=== PATIENT | female | born 1945 | race Caucasian/White ===

== ENCOUNTER → 2020-12-25 | Outpatient (CLI) | payer OTHER ==
[~2020-12-25] MED LIST: COZAAR100 MG PO; DULCOLAX5 MG PO; NORVASC5 M1 PO; OMEPRAZOLE40 MG PO; SUPER THERAVIT1 EACH PO; TYLENOL EXTRA500 MG PO
== END ==
LOC: LAB 09:13
PROVIDERS: ATTEND Specialist
DX: Z01.812 Encounter for preprocedural laboratory examination (principal); Z20.822 Contact with and (suspected) exposure to COVID-19

== ENCOUNTER → 2020-12-30 | Outpatient (CLI) | payer OTHER ==
[~2020-12-30] VITALS: Ht 160 cm; Wt 77.1 kg
--- NOTE | 2020-12-31 13:16 | P ---
[facility] [place] [address] [address] PROCEDURE REPORT Name: BREANN JURADO Room #: REG Curtis Guzman#: [id number] Admission: 12/30/20 Attend Phys: Chi Robison Discharge: Date of : 43 Report #: [id number] THIS REPORT FOR: cc: Anuj Lopez MD, Jonathan MD McElhinney,Chi Wilson MD ~ DATE OF SERVICE: 12/30/2020 PROCEDURE PERFORMED: Colonoscopy with polypectomy and tattoo. HISTORY OF PRESENT ILLNESS: The patient is a 75-year-old female with a history of colon polyps, who underwent a Cologuard test that was positive recently. She does complain of constipation in general as well as low crampy abdominal pain. No family history of colon cancer. DESCRIPTION OF PROCEDURE: The risks and benefits of the procedure were explained to the patient, those risks including but not limited to bleeding, perforation and the risk of sedation. She understood these risks and gave informed consent. Sedation was given using propofol per anesthesia. Next, a digital rectal exam was initially performed, which was normal. Next, using a standard Olympus colonoscope, the scope was placed in the patient's anus and advanced under direct vision to the cecum. The overall prep was good. The cecum and ileocecal valve were normal in appearance. In the proximal ascending colon, a large 2.5 cm sessile polyp was noted. This was removed in a piecemeal fashion with a snare cautery as well as cold biopsy forceps, the edges were then tattooed. Otherwise, normal ascending colon, transverse and descending colon were normal. Multiple small diverticula noted in the sigmoid colon, otherwise normal. In the rectum, a single 4 mm sessile polyp was noted. This was removed with cold forceps. On retroflexion, small nonbleeding internal hemorrhoids were noted. The scope was then withdrawn and the procedure terminated. The patient tolerated the procedure well. IMPRESSION: 1. Large sessile polyp in the ascending colon. 2. Small rectal polyp. 3. Sigmoid diverticulosis. 4. Internal hemorrhoids. RECOMMENDATIONS: 1. Await biopsy results. 2. Positive Cologuard test, likely due to polyps as described above. 3. Would recommend repeat colonoscopy in 1 year due to the large sessile polyp in the ascending colon. 4. Advised the patient to try MiraLax on a daily basis. [address] [address] PROCEDURE REPORT Name: BREANN JURADO Room #: REG CLCurtis Guzman#: [id number] Admission: 12/30/20 Attend Phys: Chi Robison Discharge: Date of : 43 Report #: [id number] Thank you for allowing me to participate in her care. <ELECTRONICALLY SIGNED> By: Chi Hassan MD 12/31/20 1316 1051 1111 Chi Hassan MD /raúl
--- NOTE | 2020-12-31 13:17 | P ---
[facility] [place] [address] PROCEDURE REPORT Name: BREANN JURADO Room #: REG MIRYAM Guzman#: [id number] Admission: 12/30/20 Attend Phys: Chi Robison Discharge: Date of : 43 Report #: [id number] THIS REPORT FOR: cc: Anuj Lopez MD, Jonathan MD McElhinney,Chi Wilson MD ~ DATE OF SERVICE: 12/30/2020 PROCEDURE PERFORMED: Upper endoscopy with biopsies. HISTORY OF PRESENT ILLNESS: The patient is a 75-year-old female with a history of gastroesophageal reflux disease, currently taking Prilosec 40 mg on a daily basis, has a positive Cologuard test recently. She is scheduled for EGD and colonoscopy. She does complain of constipation and low intermittent abdominal pain. She denies any dysphagia or nausea or vomiting. The patient had a possible history of H. pylori, treated in the past. DESCRIPTION OF PROCEDURE: The risks and benefits of the procedure were explained to the patient, those risks including but not limited to bleeding, perforation and the risk of sedation. She understood these risks and gave informed consent. Sedation was given using propofol per anesthesia. Next, using a standard Olympus upper endoscope, the scope was placed in the patient's mouth and advanced under direct vision through the esophagus, stomach and into the second portion of the duodenum. The larynx was normal in appearance. The upper and mid esophagus was normal. In the distal esophagus, grade B erosive esophagitis was noted, possible short segment of العلي's was also noted. Biopsies were obtained. Upon entering the stomach, a small hiatal hernia was noted. Overall, the gastric mucosa was normal. Biopsies were obtained to rule out the possibility of H. pylori. The pylorus was normal and patent. The duodenal bulb, first and second portion were all normal. The scope was then withdrawn and the procedure terminated. The patient tolerated the procedure well. IMPRESSION: 1. Grade B erosive esophagitis despite being on daily PPI therapy. 2. 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 3. Small hiatal hernia. 4. Otherwise, normal upper endoscopy. RECOMMENDATIONS: 1. Await biopsy results. 2. Would recommend b.i.d. PPI therapy. 3. We will proceed with colonoscopy next today. [address] [address] PROCEDURE REPORT Name: BREANN JURADO DEVIN Room #: REG MIRYAM Guzman#: [id number] Admission: 12/30/20 Attend Phys: Chi Robison Discharge: Date of : 43 Report #: [id number] Thank you for allowing me to participate in her care. <ELECTRONICALLY SIGNED> By: Chi Hassan MD 12/31/20 1317 1005 1012 Chi Hassan MD /nt
--- NOTE | 2021-01-05 18:06 | PATH ---
[facility] [place] [place] [address] PATHOLOGY RPT PROCEDURE Name: BREANN JURADO DEVIN Room #: REG MIRYAM MHossein.#: [id number] Admission: 12/30/20 Date of : 43 Discharge: Report #: [id number] Path Case #: [id number] [facility] Accession Number: [id number] . 01 Material submitted: . PART A: gastrointestinal site - GASTRIC BIOPSY R/O H.PYLORI PART B: gastrointestinal site - DISTAL ESOPHAGUS R/O BARRETS. Modifiers: distal PART C: colon - ASCENDING COLON POLYP. Modifiers: ascending PART D: rectum - RECTAL POLYP . 01 Clinical history: . +COLOGARD . 02 Diagnosis: A. Stomach "gastric", endoscopic biopsy: - Gastric antral and oxyntic mucosa with features of reactive gastropathy (chemical gastritis). - Gastric oxyntic mucosa with focus of granulomatous inflammation, multinucleated giant cells and focal calcification. - Negative for Helicobacter pylori. - Negative for AFB and fungal and hyphael forms. - Negative for intestinal metaplasia, dysplasia, and malignancy. - Please see comment. . B. Esophagus "distal", endoscopic biopsy: - Esophageal squamous and gastric cardia mucosa with features of chronic esophagitis. - Negative for intestinal metaplasia, dysplasia, and malignancy. . C. Large bowel "ascending colon polyp", endoscopic biopsy: - Multiple fragments of tubulovillous adenoma; negative for high grade dysplasia and malignancy. . D. Large bowel "rectal polyp", endoscopic biopsy: - Hyperplastic polyp. . (MEREDITH:erendira; 01/01/2021) [facility] 01/05/2021 1743 Local . 02 Comment: A. One of the fragments of gastric mucosa shows a robust granulomatous inflammatory process with multinucleated giant cells and focal calcification. The differential diagnosis of granulomatous gastritis includes Crohn's disease, infectious etiology, rarely as a paraneoplastic phenomenon with adenocarcinoma and lymphoma, and also rarely in the setting of systemic vasculitis. Special stains [place] [address] PATHOLOGY RPT PROCEDURE Name: BREANN JURADO Room #: REG [facility] Megan#: [id number] Admission: 12/30/20 Date of : 43 Discharge: Report #: [id number] Path Case #: [id number] fungal organisms have been ordered. The results will be the subject of a supplemental report. . (MEREDITH:erendira; 01/01/2021) . 02 Electronically signed: . Felix De Leon MD, Pathologist NPI- [id number] . 01 Gross description: . A. The specimen is received in formalin, labeled "Breann Jurado, gastric biopsy, R/O H. pylori". Received are four segments of pale moore soft tissue ranging in size from 0.2 to 0.4 cm in maximum dimensions. The specimen is submitted entirely in cassette A1. . B. The specimen is received in formalin, labeled "Breann Jurado, distal esophagus, R/O العلي's". Received are two segments of pale moore soft tissue measuring 0.3 cm each in maximum dimensions. The specimen is submitted entirely in cassette B1. . C. The specimen is received in formalin, labeled "Breann Jurado, ascending colon polyp". Received are multiple segments of light moore soft tissue ranging in size from 0.2 to 1.3 cm in maximum dimensions. The surgical margins of the larger two segments are inked and the segments are sectioned respectively. The specimen is submitted entirely in cassettes C1 through C5. . D. The specimen is received in formalin, labeled "Breann Jurado, rectal polyp". Received is a segment of pale moore soft tissue measuring 0.3 cm in maximum dimensions. The specimen is submitted entirely in cassette D1. (CAA; 12/31/2020) QAC/QAC 12/31/2020 1105 Local . 02 Microscopic: . Immunohistochemical Stain Results (Properly Controlled): . Helicobacter pylori (A1) - negative for organisms. . Special Stain Results (Properly Controlled): . AFB (A1) - negative for organisms. . PASDF (A1) - negative for organisms. . 02 Pathologist provided ICD-10: K31.9, K29.70, K20.90, D12.2, K62.[address] [facility] . [facility] [address] [place] [address] PATHOLOGY RPT PROCEDURE Name: BREANN JURADO Room #: REG MIRYAM ChavesKi#: [id number] Admission: 12/30/20 Date of : 43 Discharge: Report #: [id number] Path Case #: [id number] Specimen Comment: A courtesy copy of this report has been sent to [phone] Specimen Comment: Report sent to / Performed at: [address] [facility] [address], [place] [id number] MD Ruben Laguna MD Phone: [phone] Performed at: [address] [facility] [address] [id number] MD Shira Chauhan MD Phone: [phone]
== END | disposition home or self-care (01) ==
LOC: GI 08:21
PROVIDERS: ATTEND Specialist
DX: R19.5 Other fecal abnormalities (principal); K59.00 Constipation, unspecified; D12.2 Benign neoplasm of ascending colon; K62.1 Rectal polyp; K57.30 Diverticulosis of large intestine without perforation or abscess without bleeding; K64.8 Other hemorrhoids; K31.9 Disease of stomach and duodenum, unspecified; K20.80 Other esophagitis without bleeding; R10.9 Unspecified abdominal pain; K63.1 Perforation of intestine (nontraumatic); K44.9 Diaphragmatic hernia without obstruction or gangrene; K21.9 Gastro-esophageal reflux disease without esophagitis; J45.909 Unspecified asthma, uncomplicated; Z86.010 Personal history of colon polyps; Z98.890 Other specified postprocedural states; Z79.899 Other long term (current) drug therapy; Z90.49 Acquired absence of other specified parts of digestive tract; Z98.41 Cataract extraction status, right eye; Z98.42 Cataract extraction status, left eye; Z88.8 Allergy status to other drugs, medicaments and biological substances
CPT/HCPCS: 62110; 62900

== ENCOUNTER → 2021-12-28 | Outpatient (CLI) | payer OTHER ==
[~2021-12-28] MED LIST changes: +CARBIDOPA-LEVO1 EAC5 PO
== END ==
LOC: LAB 10:32
PROVIDERS: ATTEND Student in an Organized Health Care Education/Training Program
DX: Z01.812 Encounter for preprocedural laboratory examination (principal); Z20.822 Contact with and (suspected) exposure to COVID-19

== ENCOUNTER → 2021-12-31 | Outpatient (CLI) | payer OTHER ==
[~2021-12-31] VITALS: Ht 160 cm; Wt 67.6 kg
--- NOTE | 2022-01-03 15:07 | PATH ---
[facility] [place] [address] PATHOLOGY RPT PROCEDURE Name: STACI JURADO DEVIN Room #: REG MIRYAM Chaves.#: [id number] Admission: 12/31/21 Date of : 43 Discharge: Report #: [id number] Path Case #: [id number] [facility] Accession Number: [id number] . 01 Material submitted: . PART A: gastrointestinal site - GASTRITIS R/O H PYLORI PART B: colon - ASCENDING COLON POLYP. Modifiers: ascending . 01 Clinical history: . GERD, HX OF POLYPS HIATAL HERNIA, ESOPHAGITIS, GASTRITIS . 02 Diagnosis: A. Gastric, biopsy: - Gastric antral mucosa with mild chronic inactive gastritis. - An H. pylori immunohistochemical stain is negative for H. pylori-like organisms. - Negative for malignancy. . B. Ascending colon polyp, polypectomy: - Fragments of tubular adenoma. - Negative for high-grade dysplasia or malignancy. (ANK:cruzito; 01/03/2022) S 01/03/2022 1336 Local . 02 Electronically signed: . Anuja Slade MD, Pathologist NPI- [id number] . 01 Gross description: . A. Received in formalin labeled "Staci Jurado, gastritis rule out H. pylori" are multiple moore-brown soft tissue fragments measuring in aggregate 1.2 x 0.9 x 0.3 cm. The specimen is submitted entirely in A1. . B. Received in formalin labeled "Staci Jurado ascending colon polyp" are multiple moore-brown soft tissue fragments measuring in aggregate 2.9 x 1.2 x 0.3 cm. The specimen is submitted entirely in B1. ([facility]; 01/02/2022) . . GZA/GZA 01/03/2022 1243 Local . 02 Pathologist provided ICD-10: K29.50, D12.2 . 02 CPT . 723396, 993836, [id number] Specimen Comment: A courtesy copy of this report has been sent to [phone], [place] [address] PATHOLOGY RPT PROCEDURE Name: STACI JURADO Room #: REG MIRYAM Guzman#: [id number] Admission: 12/31/21 Date of : 43 Discharge: Report #: [id number] Path Case #: [id number] Specimen Comment: [id number] Specimen Comment: Report sent to / DR ORO Performed at: [address] [facility] [address], [place], [place] [id number] MD Ruben Laguna MD Phone: [phone] Performed at: [address] [facility] [id number] MD Anuja Slade MD Phone: [phone]
--- NOTE | 2022-01-05 12:00 | P ---
[facility] [place] [address] PROCEDURE REPORT Name: BREANN JURADO Room #: REG Crutis Guzman#: [id number] Admission: 12/31/21 Attend Phys: Chi Robison Discharge: Date of : 43 Report #: [id number] THIS REPORT FOR: cc: Anuj Lopez MD,Chi Storm MD, MD ~ cc: Anuj Lopez DATE OF SERVICE: 12/31/2021 PROCEDURE PERFORMED: Upper endoscopy with biopsies. HISTORY OF PRESENT ILLNESS: The patient is a 76-year-old female with a history of gastroesophageal reflux disease, currently taking Prilosec 40 mg b.i.d. Denies any heartburn or dysphagia. She also has a possible history of H. pylori in the past. Plan is for EGD and colonoscopy today. DESCRIPTION OF PROCEDURE: The risks and benefits of the procedure were explained to the patient, those risks including but not limited to bleeding, perforation and the risk of sedation. She understood these risks and gave informed consent. Sedation was given using propofol per anesthesia. Next, using a standard Olympus upper endoscope, the scope was placed in the patient's mouth and advanced under direct vision through the esophagus, stomach, and into the second portion of the duodenum. The larynx was normal in appearance. The upper and mid esophagus was normal. In the distal esophagus, grade B erosive esophagitis was noted. Upon entering the stomach, a small hiatal hernia was noted. Overall, the gastric mucosa was normal in the fundus and upper body; however, in the distal body and antrum, a mild gastritis was noted. No evidence of ulcerations or erosions. Biopsies were obtained to rule out H. pylori. The pylorus was normal and patent. The duodenal bulb, first and second portion were all normal. The scope was then withdrawn and the procedure terminated. The patient tolerated the procedure well. IMPRESSION: 1. Grade B erosive esophagitis. 2. Small hiatal hernia. 3. Gastritis. 4. Otherwise, normal upper endoscopy. RECOMMENDATIONS: 1. Await biopsy results. 2. We will discuss adding Carafate with the patient as she is already on b.i.d. PPI therapy. 3. We will proceed with colonoscopy next today. [address] [address] PROCEDURE REPORT Name: BREANN JURADO DEVIN Room #: REG MIRYAM Guzman#: [id number] Admission: 12/31/21 Attend Phys: Chi Robison Discharge: Date of : 43 Report #: [id number] Thank you for allowing me to participate in her care. <ELECTRONICALLY SIGNED> By: Chi Hassan MD 01/05/22 1200 1007 1311 Chi Hassan MD /nt
--- NOTE | 2022-01-05 12:00 | P ---
[facility] [place] [address] PROCEDURE REPORT Name: BREANN JURADO Room #: REG Curtis Guzman#: [id number] Admission: 12/31/21 Attend Phys: Chi Robison Discharge: Date of : 43 Report #: [id number] THIS REPORT FOR: cc: Inderjit Lopez MD,Chi Storm MD, MD ~ cc: INDERJIT LOPEZ DATE OF SERVICE: 12/31/2021 PROCEDURE PERFORMED: Colonoscopy with polypectomy. HISTORY OF PRESENT ILLNESS: The patient is a 76-year-old female who had a large 2.5 cm sessile polyp removed in a piecemeal fashion in the proximal ascending colon, last year, the edges were tattooed. The polyp was an adenomatous polyp. She is here for 1 year followup. She denies any symptoms at this time. DESCRIPTION OF PROCEDURE: The risks and benefits of the procedure were explained to the patient, those risks including but not limited to bleeding, perforation and risk of sedation. She understood these risks and gave informed consent. Sedation was given using propofol per anesthesia. Next, a digital rectal exam was initially performed, which was normal. Next, using a standard Olympus colonoscope, the scope was placed in the patient's anus and advanced under direct vision to the cecum. The overall prep was good. The cecum and ileocecal valve were normal in appearance. The previous tattoo polypectomy site was noted in the proximal ascending colon near the ileocecal valve. There is a new polyp tissue noted at approximately 7 mm in diameter at the previous polypectomy site. This was removed by snare cautery, otherwise normal ascending colon. Transverse, and descending colon were normal. Multiple diverticula were noted in the sigmoid colon. No evidence of inflammation. The rectal mucosa was normal. On retroflexion, small nonbleeding internal hemorrhoids were noted. The scope was then withdrawn and the procedure terminated. The patient tolerated the procedure well. IMPRESSION: 1. New polyp tissue at the previous polypectomy site in the ascending colon. 2. Sigmoid colon diverticulosis. 3. Internal hemorrhoids. RECOMMENDATIONS: 1. Await biopsy results. 2. Repeat colonoscopy in [address] [address] PROCEDURE REPORT Name: BREANN JURADO DEVIN Room #: REG Curtis Guzman#: [id number] Admission: 12/31/21 Attend Phys: Chi Robison Discharge: Date of : 43 Report #: [id number] Thank you for allowing me to participate in her care. <ELECTRONICALLY SIGNED> By: Chi Hassan MD 01/05/22 1200 1030 1247 Chi Hassan MD /nt
== END | disposition home or self-care (01) ==
LOC: GI
PROVIDERS: ATTEND Specialist
DX: Z09 Encounter for follow-up examination after completed treatment for conditions other than malignant neoplasm (principal); D12.2 Benign neoplasm of ascending colon; K57.30 Diverticulosis of large intestine without perforation or abscess without bleeding; K64.8 Other hemorrhoids; K21.9 Gastro-esophageal reflux disease without esophagitis; K29.50 Unspecified chronic gastritis without bleeding; K22.10 Ulcer of esophagus without bleeding; K44.9 Diaphragmatic hernia without obstruction or gangrene; I10 Essential (primary) hypertension; J45.909 Unspecified asthma, uncomplicated; Z98.890 Other specified postprocedural states; Z79.899 Other long term (current) drug therapy; Z86.73 Personal history of transient ischemic attack (TIA), and cerebral infarction without residual deficits; Z90.49 Acquired absence of other specified parts of digestive tract; Z88.8 Allergy status to other drugs, medicaments and biological substances
CPT/HCPCS: 62110; 62900